=== PATIENT | male | born 1935 | race Native Hawaiian/Other Pacific Islander ===

== ENCOUNTER 2017-11-14 14:35 | Emergency (ER) | payer OTHER ==
[~2017-11-14] VITALS: Ht 177.8 cm; Wt 88.9 kg
[~2017-11-14 14:35] MED LIST: ATEN25TA21 PO; BACTRIM1 TAB PO; CLONIDINE0.1 MG PO; LIPITOR80 MG PO; TIROSINT25 MCG PO; XARELTO15 MG PO
[2017-11-14 17:22] LABS: PLATELET COUNT 165 K/uL (142-355)
[2017-11-14 17:33] LABS: POTASSIUM 4.6 mmol/L (3.6-5.2)
[2017-11-14 22:10] VITALS: BP 154/89; TEMP 98.8
== END 2017-11-14 22:10 | disposition short-term general hospital (02) ==
LOC: ED 14:35
DX: K56.699 Other intestinal obstruction unspecified as to partial versus complete obstruction (principal)
CPT/HCPCS: 43754; 80053; 81000; 82150; 83690; 85027; 96365; 96375; 96376; 99285; J1885; J2175; J2550; J7120

== ENCOUNTER 2017-11-14 22:10 | Outpatient (CLI) | payer OTHER | END 2017-11-14 23:30 | disposition short-term general hospital (02) | LOC: AMB 22:10 | DX: K56.699 Other intestinal obstruction unspecified as to partial versus complete obstruction (principal) | CPT/HCPCS: A0425; A0427 ==

== ENCOUNTER 2019-04-08 16:06 | Observation (INO) | payer OTHER ==
[~2019-04-08] VITALS: Ht 172.7 cm; Wt 89.0 kg
[2019-04-08 17:11] LABS: PLATELET COUNT 193 K/uL (142-355)
[2019-04-08 17:31] LABS: POTASSIUM 4.9 mmol/L (3.6-5.2); SODIUM 141 mmol/L (136-145)
[2019-04-08 17:39] LABS: PARTIAL THROMBOPLASTIN TIME 30.4 SECONDS (24.5-33.6)
[2019-04-08 19:29] VITALS: BP 153/80; TEMP 98.3; Ht 172.7 cm; Wt 89.0 kg
[2019-04-08 20:00] VITALS: BP 153/80; TEMP 98.3
[2019-04-08] MEDS ORDERED: ATEN25TA21 PO (20:13)
[2019-04-08] MEDS ORDERED: XARELTO15 MG PO (20:15)
[2019-04-08] MEDS ORDERED: HYDROCHLOROT12.5 M1 PO (20:15)
[2019-04-08] MEDS ORDERED: TAMSULOSIN0.4 MG PO (20:20)
[2019-04-08] MEDS ORDERED: EUTHYROX88 MCG PO (20:20)
[2019-04-08] MEDS ORDERED: LIPITOR80 MG PO (20:21)
[2019-04-08] MEDS ORDERED: ASCO500T18 PO (20:22)
[2019-04-08] MEDS ORDERED: DOCU100C10 PO (20:22)
[2019-04-09] VITALS: BP 130/83; TEMP 98.2
[2019-04-09 04:00] VITALS: BP 124/71; TEMP 98
[2019-04-09 05:31] LABS: PLATELET COUNT 148 K/uL (142-355)
[2019-04-09 05:52] LABS: PARTIAL THROMBOPLASTIN TIME 27.6 SECONDS (24.5-33.6)
[2019-04-09 05:53] LABS: POTASSIUM 4.7 mmol/L (3.6-5.2)
[2019-04-09 08:23] VITALS: BP 148/86; TEMP 98.4
== END 2019-04-09 09:05 | disposition left against medical advice (07) ==
LOC: ED 16:06 → MED/SURG 17:15
PROVIDERS: Internal Medicine; ADMIT Hospitalist
DX: R53.1 Weakness (principal); G45.9 Transient cerebral ischemic attack, unspecified; I10 Essential (primary) hypertension; E78.49 Other hyperlipidemia; I48.91 Unspecified atrial fibrillation; N40.0 Benign prostatic hyperplasia without lower urinary tract symptoms; E03.8 Other specified hypothyroidism; Z86.73 Personal history of transient ischemic attack (TIA), and cerebral infarction without residual deficits
CPT/HCPCS: 36415; 80053; 80061; 80320; 82550; 83880; 84443; 84484; 85007; 85027; 85610; 85730; 93005; 96365; 96366; 96367; 96372; 96374; 99220; 99282; G0378; J1956

== ENCOUNTER 2019-05-08 13:08 | Outpatient (CLI) | payer OTHER ==
[~2019-05-08 13:08] MED LIST changes: +ASCO500T18 PO; +DOCU100C10 PO; +EUTHYROX88 MCG PO; +HYDROCHLOROT12.5 M1 PO; +TAMSULOSIN0.4 MG PO
[2019-05-08 13:38] LABS: PLATELET COUNT 177 K/uL (142-355)
[2019-05-08 13:55] LABS: POTASSIUM 4.8 mmol/L (3.6-5.2)
== END 2019-05-08 22:31 | disposition home or self-care (01) ==
LOC: LAB 13:08
PROVIDERS: Internal Medicine Cardiovascular Disease
DX: Z79.01 Long term (current) use of anticoagulants (principal)
CPT/HCPCS: 80048; 85027

== ENCOUNTER 2020-09-21 05:50 | Emergency (ER) | payer OTHER ==
[~2020-09-21] VITALS: Ht 172.7 cm; Wt 90.7 kg
[2020-09-21] MEDS ORDERED: METOPROLOL25 M1 PO (06:22)
[2020-09-21] MEDS ORDERED: MIRALAX17 GM PO (06:25)
[2020-09-21 06:37] LABS: PLATELET COUNT 146 K/uL (142-355)
[2020-09-21] MEDS ORDERED: PRADAXA150 MG PO (06:43)
[2020-09-21 06:50] LABS: POTASSIUM 4.1 mmol/L (3.6-5.2)
[2020-09-21 07:07] LABS: PARTIAL THROMBOPLASTIN TIME 41.9 SECONDS (24.5-33.6)
[2020-09-21 09:09] VITALS: BP 170/98; TEMP 98.7
== END 2020-09-21 09:12 | disposition home or self-care (01) ==
LOC: ED 05:50
PROVIDERS: Hospitalist
DX: R14.0 Abdominal distension (gaseous) (principal); K59.09 Other constipation; R10.84 Generalized abdominal pain
CPT/HCPCS: 36415; 80053; 81000; 82150; 83605; 83690; 85027; 85610; 85730; 96360; 96361; 96375; 99284; J2405

== ENCOUNTER 2020-12-04 09:19 | Outpatient (CLI) | payer OTHER ==
[~2020-12-04 09:19] MED LIST changes: +METOPROLOL25 M1 PO; +MIRALAX17 GM PO; +PRADAXA150 MG PO
== END 2020-12-04 22:52 | disposition home or self-care (01) ==
LOC: RAD 09:19
PROVIDERS: ATTEND Nurse Practitioner
DX: R60.0 Localized edema (principal)

== ENCOUNTER 2022-01-14 11:56 | Inpatient (IN) | payer OTHER ==
[~2022-01-14] VITALS: Ht 172.7 cm; Wt 87.2 kg
[2022-01-14] VITALS (7 sets, daily range): BP systolic 130–159; BP diastolic 75–90; TEMP 98.5–100.1; Ht 172.7 cm; Wt 87.2 kg
[~2022-01-14 11:56] MED LIST changes: +METO-837 PO; -METOPROLOL25 M1 PO
[2022-01-14 12:29] LABS: PLATELET COUNT 200 K/uL (142-355)
[2022-01-14 12:47] LABS: PARTIAL THROMBOPLASTIN TIME 46.1 SECONDS (24.5-33.6)
[2022-01-14 12:49] LABS: POTASSIUM 4.2 mmol/L (3.6-5.2)
[2022-01-14] MEDS ORDERED: NEURONTIN 100M100 MG PO (17:37)
[2022-01-14] MEDS ORDERED: PROAIR HFA INH (17:39)
[2022-01-15] VITALS: BP 139/79; TEMP 98.6
--- NOTE | 2022-01-15 00:37 | NUR ---
PT RESTING IN BED WITH EYES CLOSED. RESPONDED TO VERBAL COMMANDS. PT HEART TACHY RANGING FROM 100-120. CONTINUES TO SHOW A-FIB RYTHMN ON TELEMETRY. NO S/SX OF DISTRESS NOTED. O2 SAT AT 97 WILL 2L NC. CALL LIGHT WITHIN REACH.
--- NOTE | 2022-01-15 03:33 | NUR ---
PT LYING IN BEST RESTING WITH EYES CLOSED. DENIES PAIN OR SOB. EDUCATED PT ON HOW TO PROPERLY USE INHALER. PT VERBALIZED UNDERSTANDING. NO ACUTE DISTRESS NOTED. CALL LIGHT WITHIN REACH/
[2022-01-15 04:00] VITALS: BP 124/76; TEMP 97.8
[2022-01-15 04:40] LABS: PLATELET COUNT 189 K/uL (142-355)
--- NOTE | 2022-01-15 04:50 | NUR ---
RT CALLED TO PT ROOM TO ASSESS PT DUE TO SPO2 READING AT 85%. UPON RT ARRIVAL PT SHOWS NO SIGNS OF DISTRESS AND STATES HE FEELS FINE. PT DENIES SHORTNESS OF BREATH. SPO2 READING AT 87% ON 2LPM NC AT 28% FIO2. RT INCREASED PT TO 3LPM NC AT 32% FIO2. SPO2 NOW READING 92-93%.
[2022-01-15 05:02] LABS: POTASSIUM 4.5 mmol/L (3.6-5.2)
[2022-01-15 08:00] VITALS: BP 124/76; TEMP 98.1
--- NOTE | 2022-01-15 09:35 | NUR ---
Insulation Mechanic talking with patient this morning and he feels that he needs some home health after discharge. Insulation Mechanic spoke with MD and she said that he should go home through the weekend and television script writer setting up home health since discharge planning not here on the weekend. Insulation Mechanic spoke with Carla at [facility] because patient says that he thinks thats who he used about 7 years ago and he really like them. Insulation Mechanic let Carla know that he should discharge home more than [facility] through the weekend if he continues to improve and information was sent. Patient notified that he would receive a call from [facility] first of next week to set up time with him to come evaluate him.
--- NOTE | 2022-01-15 10:28 | NUR ---
PATIENT WALKED WITHOUT OXYGEN, SPO2 DROPPED TO 85% HR 133. PATIENT BACK IN BED ON O2 AT 2LPM WHEN RT LEFT THE ROOM, SPO2 92%
[2022-01-15 12:10] VITALS: BP 127/89; TEMP 97.9
--- NOTE | 2022-01-15 12:40 | NUR ---
PT ALERT AND ORIENTED X4. O2 INTACT AT 3LPM VIA NC, SATS=97% WITH O2 INTACT. WALK TEST COMPLETED ON PT FOR NEED FOR O2. PTS SATS=85-86% WITHOUT 02 INTACT, PT QUALIFIES FOR HOME O2. WILL BE DISCHARGED ON TUESDAY BUT O2 TANK WILL BE DELIVERED TODAY. CONTINUE TO MONITOR.
--- NOTE | 2022-01-15 12:44 | NUR ---
[place] Lead Burner given orders to get oxygen set up for patient for his weekend discharge if able. manufacturing director contacted [facility] and they will deliver oxygen to the nurses station today.
[2022-01-15 16:00] VITALS: BP 132/83; TEMP 98.4
--- NOTE | 2022-01-15 18:25 | NUR ---
PT LAYING SUPINE IN BED WITH O2 INTACT AT 3LPM VIA NC. PT STARTED LOADING DOSE OF REMDESIVIR ORDERED, CONSENT SIGNED AND ON CHART. IVF INFUSING AT 100ML/HR OF LR ORDERED TO RAC WITH ARM BOARD INTACT TO STABELIZE IV SITE. DENIES ANY PAIN/DISCOMFORT. PT ED ON THE USE OF COMBIVENT MDI AND PT DEMONSTRATED CORRECT USE OF MDI. O2 TANK AND O2 CONCENTRATOR DELIVERED TO PT FOR PT TO TAKE HOME WHEN DISCHARGED IN THE AM. PT HAS HEARING AID, THAT WAS BROUGHT TO HIM BY FAMILY AND HEARS CLEARLY NOW. ALERT AND ORIENTED. CONTINUE TO MONITOR.
[2022-01-15 20:00] VITALS: BP 134/92; TEMP 97.7
[2022-01-16] VITALS: BP 143/84; TEMP 98
--- NOTE | 2022-01-16 01:04 | NUR ---
PT DOES HAVE COUGHING PERIODS. USING MDI ORDERED. PT IS ADMITTED WITH COVID 19 AND PNEUMONIA.
[2022-01-16 04:00] VITALS: BP 133/85; TEMP 97.8
--- NOTE | 2022-01-16 07:42 | NUR ---
PT AWAKE AND ALERT. DENIES ANY PAIN/DISCOMFORT. O2 INTACT AT 3LPM VIA NC. IV SITE TO LAC INTACT WITH NO SWELLING OR REDNESS NOTED. PT DOES NOT HAVE HEARING AIDS INTACT AND IS HARD OF HEARING. NO VOICED COMPLAINTS.
[2022-01-16 08:10] VITALS: BP 115/73; TEMP 97.7
[2022-01-16] MEDS ORDERED: DEXA4INJ21 PO (09:30)
[2022-01-16] MEDS ORDERED: LEVAQUIN250 MG PO (09:32)
--- NOTE | 2022-01-16 12:30 | NUR ---
PT SITTING ON THE SIDE OF BED WATCHING TV. AM MEDS ADMINISTERED ORDERED AND PT TOLERATED WELL. ADMINISTERED IV LEVAQUIN AND IV REMDESIVIR, 1 OF 4 DOSES. PT WILL RETURN TO [facility] FOR REMAINDER OF 3 DOSES VIA OUT-PATIENT INFUSION. ORDER FAXED TO ADMISSIONS. DENIES ANY PAIN/DISCOMFORT. NAD NOTED. PT DISCHARGED TO GO HOME PER HCP(АННА). DISCHARGE INSTRUCTIONS GIVEN TO PT AND WILL INFORM [facility], WHO WILL BE TRANSPORTING PT HOME. IV SITE TO [facility] FOR REMAINDER OF OUT-PT INFUSIONS. NO SWELLING OR REDNESS NOTED TO SITE. WRAPPED IV SITED WITH KOBAN WRAP TO SECURE. PT VERBALIZED UNDERSTANDING OF DISCHARGE INSTRUCTIONS. NEW PRESCRIPTION FOR LEVAQUIN PO AND DEXAMETHASONE PO CALLED IN TO [facility] IN [place] BY HCP. INFORMED PT TO GO TO PHARMACY TO PICK-UP MEDS. TELEMETRY D/C'D. PT AWAITNING FOR [facility] TO ARRIVE TO TRANSPORT HIM HOME ABOUT 1300. CONTINUE TO MONITOR.
--- NOTE | 2022-01-16 12:45 | NUR ---
PT DRESSED IN PERSONAL CLOTHING AND AWITING TO BE TRANSPORTED HOME BY [facility]. ASKED PT IF HE WANTED TO TAKE A SHOWER BEFORE CHANGING HIS CLOTHES AND PT REPLIED "NO,I'LL JUST WAIT UNTIL I GET HOME." CONTINUE TO MONITOR.
--- NOTE | 2022-01-16 13:09 | NUR ---
[facility] ARRIVED TO TRANSPORT PT HOME. PT ED ON CORRECT USE OF O2 TANK AND O2 CONCENTRATOR BY RESP THEAPIST. PT AND [facility] VERBALIZED UNDERSTANDING. DISCHARGE INSTRUCTIONS GIVEN TO [facility] INCLUDING PTS OUT-PT INFUSION SCHEDULED FOR TUESDAY, TUESDAY AND TUESDAY AND PT MUST ARRIVE BEFORE 1400 TO HAVE INFUSION COMPLETED. IV SITE TO RAC INTACT AND SECURED WITH KOBAN. TRANSPORTED OUT OF FACILITY VIA WHEELCHAIR AT 1300.
== END 2022-01-16 13:26 | disposition home or self-care (01) | DRG 177 ==
LOC: ED 11:56 → MED/SURG 13:30
PROVIDERS: ADMIT Emergency Medicine; ATTEND Internal Medicine
DX: U07.1 COVID-19 (principal); J96.01 Acute respiratory failure with hypoxia; J12.82 Pneumonia due to coronavirus disease 2019; I48.21 Permanent atrial fibrillation; N18.4 Chronic kidney disease, stage 4 (severe); N17.8 Other acute kidney failure; Z79.01 Long term (current) use of anticoagulants; H91.8X3 Other specified hearing loss, bilateral; I12.9 Hypertensive chronic kidney disease with stage 1 through stage 4 chronic kidney disease, or unspecified chronic kidney disease; F03.90 Unspecified dementia, unspecified severity, without behavioral disturbance, psychotic disturbance, mood disturbance, and anxiety; Z86.73 Personal history of transient ischemic attack (TIA), and cerebral infarction without residual deficits; M15.8 Other polyosteoarthritis; M10.9 Gout, unspecified; N40.0 Benign prostatic hyperplasia without lower urinary tract symptoms; E03.8 Other specified hypothyroidism; E78.49 Other hyperlipidemia
CPT/HCPCS: 36415; 36600; 43754; 80053; 82805; 83880; 84443; 84484; 85027; 85379; 85385; 85610; 85730; 87040; 87070; 87205; 87502; 87635; 93005; 94760; 96365; 99284; J0248; J0696; J1100; J1650; J1956; J7120; U0003

== ENCOUNTER 2022-01-17 09:55 | Outpatient (CLI) | payer OTHER ==
[~2022-01-17] VITALS: Ht 172.7 cm; Wt 83.9 kg
[~2022-01-17 09:55] MED LIST changes: +DEXA4INJ21 PO; +LEVAQUIN250 MG PO; +NEURONTIN 100M100 MG PO; +PROAIR HFA INH
[2022-01-18] MEDS ORDERED: ALBUTEROL108 MCG/AC INH (21:28)
== END 2022-01-17 19:07 | disposition home or self-care (01) ==
LOC: INF 09:55
PROVIDERS: ATTEND Internal Medicine
DX: Z23 Encounter for immunization (principal); U07.1 COVID-19
CPT/HCPCS: 96365; J0248

== ENCOUNTER 2022-01-18 11:58 | Inpatient (IN) | payer OTHER ==
[~2022-01-18] VITALS: Ht 172.7 cm; Wt 84.9 kg
[2022-01-18 12:20] VITALS: BP 109/82; TEMP 99.4
[2022-01-18 12:54] LABS: POTASSIUM 4.5 mmol/L (3.6-5.2)
[2022-01-18 14:20] VITALS: BP 111/78; TEMP 97.3
[2022-01-18 16:00] LABS: PLATELET COUNT 244 K/uL (142-355)
[2022-01-18 16:11] LABS: PARTIAL THROMBOPLASTIN TIME 29.2 SECONDS (24.5-33.6)
[2022-01-18 18:19] VITALS: BP 111/78; TEMP 97.3; Ht 172.7 cm; Wt 84.9 kg
[2022-01-18 20:00] VITALS: BP 149/79; TEMP 98.9
[2022-01-18] MEDS ORDERED: ALBUTEROL108 MCG/AC INH (21:28)
[2022-01-19] VITALS (7 sets, daily range): BP systolic 108–135; BP diastolic 50–82; TEMP 97.1–98.4
[2022-01-19 05:21] LABS: PLATELET COUNT 251 K/uL (142-355)
[2022-01-19 05:45] LABS: POTASSIUM 5.5 mmol/L (3.6-5.2)
== END 2022-01-19 23:05 | disposition short-term general hospital (02) | DRG 189 ==
LOC: INF 11:58 → MED/SURG 13:25
PROVIDERS: ADMIT Internal Medicine; ATTEND Internal Medicine
DX: J96.01 Acute respiratory failure with hypoxia (principal); U07.1 COVID-19; J12.82 Pneumonia due to coronavirus disease 2019; I48.21 Permanent atrial fibrillation; N18.4 Chronic kidney disease, stage 4 (severe); N17.8 Other acute kidney failure; Z79.01 Long term (current) use of anticoagulants; H91.8X3 Other specified hearing loss, bilateral; I12.9 Hypertensive chronic kidney disease with stage 1 through stage 4 chronic kidney disease, or unspecified chronic kidney disease; F03.90 Unspecified dementia, unspecified severity, without behavioral disturbance, psychotic disturbance, mood disturbance, and anxiety; M15.8 Other polyosteoarthritis; M10.9 Gout, unspecified; N40.0 Benign prostatic hyperplasia without lower urinary tract symptoms; E03.8 Other specified hypothyroidism; E78.49 Other hyperlipidemia
CPT/HCPCS: 36415; 36600; 80053; 81002; 82805; 83615; 85027; 85379; 85385; 85610; 85730; 87635; 94760; J0248; J0696; J1100; J2060; J7120; Q9963; U0003

== ENCOUNTER 2022-02-23 18:16 | Emergency (ER) | payer OTHER ==
[~2022-02-23] VITALS: Ht 172.7 cm; Wt 84.8 kg
[~2022-02-23 18:16] MED LIST changes: +ALBUTEROL108 MCG/AC INH
[2022-02-23 19:08] LABS: PLATELET COUNT 300 K/uL (142-355)
[2022-02-23 19:30] LABS: PARTIAL THROMBOPLASTIN TIME 30.8 SECONDS (24.5-33.6)
[2022-02-23 21:45] VITALS: BP 108/68; TEMP 98
== END 2022-02-23 21:45 | disposition short-term general hospital (02) ==
LOC: ED 18:16
PROVIDERS: Emergency Medicine Emergency Medical Services
DX: R06.09 Other forms of dyspnea (principal); I50.9 Heart failure, unspecified; J18.8 Other pneumonia, unspecified organism; Z79.899 Other long term (current) drug therapy
CPT/HCPCS: 36415; 36600; 80053; 82805; 83605; 83735; 83880; 84484; 85027; 85610; 85730; 87040; 87635; 93005; 96365; 96366; 96375; 99284; J2543; J3490; U0003

== ENCOUNTER 2022-06-22 05:46 | Emergency (ER) | payer OTHER ==
[~2022-06-22] VITALS: Ht 172.7 cm; Wt 84.8 kg
[2022-06-22 05:46] VITALS: TEMP 98.1
[2022-06-22 06:52] VITALS: BP 120/63
== END 2022-06-22 06:52 | disposition home or self-care (01) ==
LOC: ED 05:46
DX: B02.9 Zoster without complications (principal)
CPT/HCPCS: 96372; 99283; J1170; J2550

== ENCOUNTER 2023-07-14 03:02 | Inpatient (IN) | payer OTHER ==
[~2023-07-14] VITALS: Ht 177.8 cm; Wt 84.9 kg
[2023-07-14] VITALS (12 sets, daily range): BP systolic 100–120; BP diastolic 47–85; TEMP 81–98.4; Ht 177.8 cm; Wt 84.9 kg
[2023-07-14 03:25] LABS: PLATELET COUNT 231 K/uL (142-355)
[2023-07-14 03:49] LABS: POTASSIUM 4.2 mmol/L (3.6-5.2)
[2023-07-15] VITALS: BP 124/60; TEMP 98.1
[2023-07-15 03:48] LABS: PLATELET COUNT 206 K/uL (142-355)
[2023-07-15 04:00] VITALS: BP 128/63; TEMP 98.4
[2023-07-15 04:56] LABS: POTASSIUM 4.7 mmol/L (3.6-5.2)
[2023-07-15 08:00] VITALS: BP 117/58; TEMP 97.7
[2023-07-15 12:00] VITALS: BP 114/56; TEMP 97.9
[2023-07-15] MEDS ORDERED: FURO40TA93 PO (15:20)
[2023-07-15] MEDS ORDERED: XARELTO15 MG PO (15:21)
[2023-07-15] MEDS ORDERED: METOLAZONE10 MG PO (15:21)
[2023-07-15] MEDS ORDERED: DIGOX125 MCG PO (15:22)
[2023-07-15] MEDS ORDERED: MIRALAX17 GM PO (15:22)
[2023-07-15 16:00] VITALS: BP 110/58; TEMP 97.7
[2023-07-15 20:00] VITALS: BP 116/68; TEMP 98
[2023-07-16] VITALS: BP 126/67; TEMP 98.1
[2023-07-16 04:00] VITALS: BP 124/64; TEMP 98.2
[2023-07-16 07:04] LABS: PLATELET COUNT 208 K/uL (142-355)
[2023-07-16 07:17] LABS: POTASSIUM 5.6 mmol/L (3.6-5.2)
[2023-07-16 08:00] VITALS: BP 125/77; TEMP 98
[2023-07-16 12:00] VITALS: BP 124/61; TEMP 97.4
[2023-07-16 14:31] LABS: POTASSIUM 4.8 mmol/L (3.6-5.2)
[2023-07-16 16:00] VITALS: BP 131/50; TEMP 97.9
[2023-07-16 20:00] VITALS: BP 136/73; TEMP 98.4
[2023-07-17] VITALS: BP 130/66; TEMP 98.5
[2023-07-17 04:00] VITALS: BP 129/62; TEMP 98.7
[2023-07-17 07:24] LABS: PLATELET COUNT 186 K/uL (142-355)
[2023-07-17 07:40] LABS: POTASSIUM 5.1 mmol/L (3.6-5.2)
[2023-07-17 08:00] VITALS: BP 132/74; TEMP 98.1
[2023-07-17 12:00] VITALS: BP 135/71; TEMP 98.3
[2023-07-17 16:00] VITALS: BP 134/68; TEMP 97.4
[2023-07-17 20:00] VITALS: BP 142/71; TEMP 97.8
[2023-07-18] VITALS: BP 137/81; TEMP 97.9
[2023-07-18 04:00] VITALS: BP 136/85; TEMP 97.9
[2023-07-18 05:00] VITALS: BP 136/85; TEMP 97.9
[2023-07-18 05:20] LABS: PLATELET COUNT 221 K/uL (142-355)
[2023-07-18 05:23] LABS: POTASSIUM 5.5 mmol/L (3.6-5.2)
[2023-07-18 08:00] VITALS: BP 144/83; TEMP 97.8
[2023-07-18 12:00] VITALS: BP 126/74; TEMP 97.7
[2023-07-18] MEDS ORDERED: COLCRYS 0.6MG0.6 MG PO (14:34)
[2023-07-18] MEDS ORDERED: BUME1TAB19 PO (14:38)
== END 2023-07-18 15:36 | disposition home or self-care (01) | DRG 292 ==
LOC: ED 03:02 → MED/SURG 05:14
PROVIDERS: ADMIT Family Medicine; ATTEND Family Medicine
DX: I11.0 Hypertensive heart disease with heart failure (principal); N39.0 Urinary tract infection, site not specified; I50.9 Heart failure, unspecified; M10.9 Gout, unspecified; N18.9 Chronic kidney disease, unspecified; R60.0 Localized edema; M79.605 Pain in left leg; M79.604 Pain in right leg; R06.02 Shortness of breath; I12.9 Hypertensive chronic kidney disease with stage 1 through stage 4 chronic kidney disease, or unspecified chronic kidney disease; D64.89 Other specified anemias; R21 Rash and other nonspecific skin eruption
CPT/HCPCS: 36415; 36600; 80048; 80053; 81000; 82805; 83735; 83880; 84100; 84550; 85027; 87086; 87088; 93005; 94664; 94760; 96365; 96375; 99284; J0696; J1885; J2270; J2405; J2920; J2930; J3490

== ENCOUNTER 2023-08-06 15:25 | Emergency (ER) | payer OTHER ==
[~2023-08-06] VITALS: Ht 165.1 cm; Wt 80.3 kg
[~2023-08-06 15:25] MED LIST changes: +BUME1TAB19 PO; +COLCRYS 0.6MG0.6 MG PO; +DIGOX125 MCG PO; +FURO40TA93 PO; +METOLAZONE10 MG PO
[2023-08-06 15:30] VITALS: TEMP 97.6
[2023-08-06] MEDS ORDERED: GI COCKTAIL-HYOSCYAMINE 30 ML ML PO SCH (15:50)
[2023-08-06] MEDS ORDERED: GI COCKTAIL-HYOSCYAMINE 30 ML ML PO ONE (15:56)
[2023-08-06 16:11] LABS: PLATELET COUNT 180 K/uL (142-355)
[2023-08-06 16:15] LABS: POTASSIUM 4.2 mmol/L (3.6-5.2)
[2023-08-06 16:28] LABS: PARTIAL THROMBOPLASTIN TIME 36.7 SECONDS (23.9-36.7)
[2023-08-06] MEDS ORDERED: CEFTRIAXONE SODIUM 1,000 MG in SOD. CHLORIDE 0.9% 50 ML IVPB ONE (17:51)
[2023-08-06] MEDS ORDERED: CEFTRIAXONE SODIUM 1,000 MG IV ONE (17:57)
[2023-08-06] MEDS ORDERED: SOD. CHLORIDE 0.9% 50 ML IV ONE (17:57)
[2023-08-06 19:45] VITALS: BP 138/75
== END 2023-08-06 19:45 | disposition short-term general hospital (02) ==
LOC: ED 15:25
PROVIDERS: Internal Medicine Endocrinology, Diabetes & Metabolism
DX: R10.9 Unspecified abdominal pain (principal); R14.0 Abdominal distension (gaseous); K56.609 Unspecified intestinal obstruction, unspecified as to partial versus complete obstruction; N39.0 Urinary tract infection, site not specified
CPT/HCPCS: 36415; 80053; 81000; 82150; 82550; 83690; 84484; 85027; 85610; 85730; 87077; 87086; 87088; 87186; 93005; 96365; 99284; J0696